=== PATIENT | female | born 1940 | race Caucasian/White ===

== ENCOUNTER 2017-01-02 14:15 | Emergency (ER) | payer MEDICARE, BC ==
[2017-01-02] MEDS ORDERED: Sodium Chloride 0.9% 10 ML Syringe FLUSH PRN (16:01)
[2017-01-02] MEDS ORDERED: Acetaminophen 325 MG Tab PO ONE (16:02)
--- NOTE | 2017-01-02 16:11 | EDM.PDOC ---
ED HPI GENERAL MEDICAL PROBLEM - General Chief Complaint: Cardiovascular Problem Stated Complaint: DIZZY/NUMBNESS SPELLS Time Seen by Provider: 01/02/17 15:45 Source of Information: Reports: Patient History Limitations: Reports: No Limitations - History of Present Illness INITIAL COMMENTS - FREE TEXT/NARRATIVE: Katja is a 76 year old female who presents to the ED today with c/o of episodes at home where she was "feeling warm" and nearly passed out. Patient reports this happened a total of 3 times. She does endorse some chest pressure which has since resolved. Patient does wonder if anxiety is playing a role in her symptoms, states she used to be on Ativan but her PCP took her off of that and started her on Buspar. Patient denies any current chest pain, shortness of breath or current dizziness/or room spinning sensation. Onset: Today - Related Data Allergies Allergy/AdvReac Type Severity Reaction Status Date / Time Sulfa (Sulfonamide Allergy Mild Rash Verified 01/02/17 15:16 Antibiotics) tape Allergy Blisters Uncoded 03/24/15 16:54 Home Meds: Home Meds Hydrochlorothiazide 25 mg PO DAILY 07/16/13 [History] Losartan [Cozaar] 100 mg PO DAILY 07/16/13 [History] Oxybutynin [Oxybutynin ER] 5 mg PO DAILY 07/16/13 [History] Aspirin/Calcium Carbonate/Mag [Aspirin Buffered 325 mg Tab] 1 tab PO DAILY 01/02 [History] Calcium Carbonate [Calcium] 1 tab PO DAILY 01/02/17 [History] Doxazosin [Cardura] 1 tab PO DAILY 01/02/17 [History] Fish Oil/[place]-3 Fatty Acids [Fish Oil 1,000 MG] 1,500 mg PO DAILY 01/02/17 [ History] LORazepam 1 tab PO BEDTIME 01/02/17 [History] Loratadine [Claritin] 1 tab PO DAILY 01/02/17 [History] Omeprazole 1 tab PO DAILY 01/02/17 [History] Sertraline [Zoloft] 1 tab PO DAILY 01/02/17 [History] busPIRone [Buspar] 1 tab PO BID 01/02/17 [History] Past Medical History Cardiovascular History: Reports: Hypertension Respiratory History: Reports: Bronchitis, Recurrent Gastrointestinal History: Reports: GERD 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 Denies: No Symptoms Endocrine: Reports: No Symptoms GI/Abdominal: Reports: No Symptoms Musculoskeletal: Reports: No Symptoms Skin: Reports: No Symptoms Neurological: Reports: Dizziness (Resolved), Other (Near syncope) Psychiatric: Reports: Anxiety Hematologic/Lymphatic: Reports: No Symptoms Immunologic: Reports: No Symptoms ED EXAM, GENERAL - Physical Exam Exam: See Below Exam Limited By: No Limitations General Appearance: Alert, WD/WN, Anxious (Mildly) Eye Exam: Bilateral Eye: EOMI, PERRL Ears: Normal External Exam, Normal TMs Throat/Mouth: Normal Oropharynx Respiratory/Chest: No Respiratory Distress, Lungs Clear, Normal Breath Sounds Cardiovascular: No Murmur, Other (Mild lower extremity edema, irregularily irregular rhythm. ) GI/Abdominal: Normal Bowel Sounds, Soft, Non-Tender Extremities: Normal Inspection, Normal Range of Motion Neurological: Alert, Oriented, CN II-XII Intact Psychiatric: Anxious (Mildly) Skin Exam: Warm, Dry, Intact Lymphatic: No Adenopathy EKG INTERPRETATION EKG Date: 01/02/17 Time: 16:00 Rhythm: a-fib [place]: normal P-wave: absent QRS: normal ST-T: normal Comparison: change from previous EKG (New afib compared to 03/14/2015) EKG Interpretation Comments: Repeat EKG done at 1820 which confirms atrial fibrillation. No ischemic acute findings Course - Vital Signs Text/Narrative:: Katja is a delightful 76 year old female who presents to the ED today with near syncope at home as well as feeling "warm and flushed". Please refer to HPI and focused exam. Initial EKG shows atrial fibrillation which is new for patient, unknown when this started making patient not a candidate for cardioversion, EKG back in March of 2015 shows a NSR. There is no acute ischemic changes on EKG, confirmed with Dr. Phillip. Concern if patient's symptoms today are secondary to anxiety or cardiac in origin vs. cerebellar involvement although less likely. CXR is unremarkable. CT scan of head is negative for any acute intracranial findings. Blood work today returns with very mildly elevated BNP, initial troponin is undetectable and remaining blood work (CBC and CMP) is within normal limits. Patient's was given 0.5 mg oral ativan here per request and reports she is feeling better. Repeat EKG was obtained and continues to show atrial fibrillation with controlled rate. Patient's Chads 2 vasc is a 4, encouraging anti-coagulation. I discussed patient with her primary care doctor, Dr. Caputo who would like patient started on Coumadin or Pradaxa, after discussing options and plan of care with patient and her , reports that their insurance does not cover Pradaxa as he is on Coumadin as well. Patient was given a 5 mg tablet here in the ED, RX was given for 5 mg daily at this time. Patient is to see Dr. Caputo in clinic tomorrow at 11:45 for ED follow up and to discuss the Coumadin and INR testing. INR today is 0.96. I did instruct patient to take her 325 mg of Aspirin tomorrow as the Coumadin will not be effective right away. Reasons to return to the ED were discussed in detail. Patient was agreeable to plan of care and discharged with her and in stable condition. Last Recorded V/S: Last Vital Signs Temp 37 C 01/02/17 15:14 Pulse 76 01/02/17 18:09 Resp 12 01/02/17 18:09 BP 144/91 H 01/02/17 18:09 Pulse Ox 90 L 01/02/17 18:09 - Orders/Labs/Meds Orders: Active Orders 24 hr Category Date Time Status EKG Documentation Completion [RC] ASDIRECTED Care 01/02/17 15:26 Active EKG Documentation Completion [RC] ASDIRECTED Care 01/02/17 17:52 Active Peripheral IV Care [RC] . DIRECTED Care 01/02/17 16:01 Active Chest 2V [CR] Stat Exams 01/02/17 16:03 Taken Head wo Cont [CT] Stat Exams 01/02/17 16:03 Taken Sodium Chloride 0.9% [Saline Flush] Med 01/02/17 16:01 Active 10 ml FLUSH ASDIRECTED PRN Peripheral IV Insertion Adult [OM.PC] Routine Oth 01/02/17 16:01 Ordered EKG 12 Lead [EK] Stat Ther 01/02/17 15:26 Ordered EKG 12 Lead [EK] Stat Ther 01/02/17 17:52 Ordered Medication Orders Sodium Chloride (Saline Flush) 10 ml FLUSH ASDIRECTED PRN PRN Reason: Keep Vein Open Labs: Laboratory Tests 01/02/17 01/02/17 01/02/17 Range/Units 16:13 16:13 18:50 WBC 7.1 (4.5-11.0) K/uL RBC 4.59 (3.30-5.50) M/uL Hgb 14.6 (12.0-15.0) g/dL Hct 44.2 (36.0-48.0) % MCV 96 (80-98) fL MCH 32 H (27-31) pg MCHC 33 (32-36) % Plt Count 253 (150-400) K/uL Neut % (Auto) 62 (36-66) % Lymph % (Auto) 24 (24-44) % [place] % (Auto) 12 H (2-6) % Eos % (Auto) 1 L (2-4) % Baso % (Auto) 1 (0-1) % PT 10.2 (9.5-12.0) sec INR 0.96 (0.80-1.20) Sodium 140 (140-148) mmol/L Potassium 4.0 (3.6-5.2) mmol/L Chloride 104 (100-108) mmol/L Carbon Dioxide 29 (21-32) mmol/L Anion Gap 6.8 (5.0-14.0) mmol/L BUN 22 H (7-18) mg/dL Creatinine 0.8 (0.6-1.0) mg/dL Est Cr Clr Drug Dosing 51.03 mL/min Estimated GFR (MDRD) > 60 (>60) Glucose 108 H (74-106) mg/dL Calcium 8.5 (8.5-10.1) mg/dL Total Bilirubin 0.3 (0.2-1.0) mg/dL AST 13 L (15-37) U/L ALT 23 (12-78) U/L Alkaline Phosphatase 63 (46-116) U/L Troponin I < 0.017 (0.000-0.056) ng/mL Twm-Q-Hvyhmgrszmi Pept 425 H (5-125) pg/mL Total Protein 7.0 (6.4-8.2) g/dL Albumin 3.5 (3.4-5.0) g/dL Globulin 3.5 (2.3-3.5) g/dL Albumin/Globulin Ratio 1.0 L (1.2-2.2) Meds: Medications Generic Name Dose Route Start Last Admin Trade Name Freq PRN Reason Stop Dose Admin Sodium Chloride 10 ml 01/02/17 16:01 Saline Flush FLUSH ASDIRECTED PRN Keep Vein Open Discontinued Medications Generic Name Dose Route Start Last Admin Trade Name Freq PRN Reason Stop Dose Admin Acetaminophen 975 mg 01/02/17 16:02 01/02/17 16:15 Tylenol PO 01/02/17 16:03 975 mg NOW ONE Administration Lorazepam 0.5 mg 01/02/17 17:52 01/02/17 18:00 Ativan PO 01/02/17 17:53 0.5 mg ONETIME ONE Administration Warfarin Sodium 5 mg 01/02/17 18:50 Coumadin PO 01/02/17 18:51 ONETIME ONE Departure - Departure Time of Disposition: 19:15 Disposition: Home, Self-Care 01 Condition: good Clinical Impression: Atrial fibrillation Qualifiers: Atrial fibrillation type: unspecified Qualified Code(s): I48.91 - Unspecified atrial fibrillation Instructions: Atrial Fibrillation, [id number], Warfarin: What You Need to Know Referrals: Prosper Caputo Sr, MD [Primary Care Provider] - Forms: ED Department Discharge Additional Instructions: Katja, you have received your first dose of Coumadin (Warfarin) in the ED tonight. Take your next dose tomorrow night. Please see Dr. Caputo in clinic tomorrow at 11:45 as discussed. I have given you a total of 10 tablets of Coumadin, you can take one tablet a day unless directed otherwise by Dr. Caputo, the total dosage will depend on your INR which is the blood test that determines the therapeutic level of the Coumadin. It was so nice to meet you. Take care and good luck with everything. - My Orders Last 24 Hours: My Active Orders 01/02/17 15:26 EKG Documentation Completion [RC] ASDIRECTED EKG 12 Lead [EK] Stat 01/02/17 16:01 Peripheral IV Care [RC] . DIRECTED Sodium Chloride 0.9% [Saline Flush] 10 ml FLUSH ASDIRECTED PRN Peripheral IV Insertion Adult [OM.PC] Routine 01/02/17 16:03 Chest 2V [CR] Stat Head wo Cont [CT] Stat 01/02/17 17:52 EKG Documentation Completion [RC] ASDIRECTED EKG 12 Lead [EK] Stat - Assessment/Plan Last 24 Hours: My Active Orders 01/02/17 15:26 EKG Documentation Completion [RC] ASDIRECTED EKG 12 Lead [EK] Stat 01/02/17 16:01 Peripheral IV Care [RC] . DIRECTED Sodium Chloride 0.9% [Saline Flush] 10 ml FLUSH ASDIRECTED PRN Peripheral IV Insertion Adult [OM.PC] Routine 01/02/17 16:03 Chest 2V [CR] Stat Head wo Cont [CT] Stat 01/02/17 17:52 EKG Documentation Completion [RC] ASDIRECTED EKG 12 Lead [EK] Stat
[2017-01-02] MEDS ORDERED: LORazepam 0.5 MG Tab PO ONE (17:52)
[2017-01-02 18:29] VITALS: BP 144/91
[2017-01-02] MEDS ORDERED: Warfarin 5 MG Tab PO ONE (18:50)
--- NOTE | 2017-01-03 10:19 | CR ---
Mild cardiomegaly. Pulmonary vasculature within normal limits. No focal consolidation.
== END 2017-01-02 17:50 | disposition home or self-care (01) ==
LOC: JP.ED 14:15
DX: I48.91 Unspecified atrial fibrillation (principal); K21.9 Gastro-esophageal reflux disease without esophagitis; F41.9 Anxiety disorder, unspecified; Z85.41 Personal history of malignant neoplasm of cervix uteri; Z90.710 Acquired absence of both cervix and uterus; Z96.659 Presence of unspecified artificial knee joint; Z96.649 Presence of unspecified artificial hip joint; Z79.82 Long term (current) use of aspirin; Z79.899 Other long term (current) drug therapy; Z88.2 Allergy status to sulfonamides; Z91.048 Other nonmedicinal substance allergy status
CPT/HCPCS: 36415; 70450; 71020; 80053; 83880; 84484; 85025; 85610; 93005; 99285; A9270; 93010; 99284

== ENCOUNTER 2017-02-24 19:26 | Emergency (ER) | payer MEDICARE, BC ==
--- NOTE | 2017-02-24 19:54 | EDM.PDOC ---
[id number] by Provider: 02/24/17 19:48 Source of Information: Reports: Patient, Family History Limitations: Reports: No Limitations - History of Present Illness INITIAL COMMENTS - FREE TEXT/NARRATIVE: 77-year-old female recently discharged from an extended rehabilitation hospitalization after a two-vessel bypass graft and ischemic stroke presents with 2 days of increasing sensation of dyspnea. The symptoms are very similar to her anxiety symptoms but her wants to be reassured. She has no new pain, however the symptoms do see somewhat worse when she is lying down. Denies a cough. On arrival her respiratory rate is normal and O2 saturations are normal on room air. Onset: Unknown/Unsure Severity: Mild Worsens with: Reports: Other (Somewhat worse when lying down or active) Associated Symptoms: Reports: Confusion (She has persistent confusion and expressive aphasia since her stroke), Shortness of Breath. Denies: Diaphoresis , Fever/Chills, Nausea/Vomiting - Related Data Allergies Allergy/AdvReac Type Severity Reaction Status Date / Time Sulfa (Sulfonamide Allergy Mild Rash Verified 02/24/17 20:11 Antibiotics) tape Allergy Blisters Uncoded 02/24/17 20:11 Home Meds: Home Meds Hydrochlorothiazide 25 mg PO DAILY 07/16/13 [History] Losartan [Cozaar] 100 mg PO DAILY 07/16/13 [History] Oxybutynin [Oxybutynin ER] 5 mg PO DAILY 07/16/13 [History] Aspirin/Calcium Carbonate/Mag [Aspirin Buffered 325 mg Tab] 1 tab PO DAILY 01/02 [History] Calcium Carbonate [Calcium] 1 tab PO DAILY 01/02/17 [History] Doxazosin [Cardura] 1 tab PO DAILY 01/02/17 [History] Fish Oil/[place]-3 Fatty Acids [Fish Oil 1,000 MG] 1,500 mg PO DAILY 01/02/17 [ History] LORazepam 1 tab PO BEDTIME 01/02/17 [History] Loratadine [Claritin] 1 tab PO DAILY 01/02/17 [History] Omeprazole 1 tab PO DAILY 01/02/17 [History] Sertraline [Zoloft] 1 tab PO DAILY 01/02/17 [History] busPIRone [Buspar] 1 tab PO BID 01/02/17 [History] Cholecalciferol (Vitamin D3) [Vitamin D3] 1,000 - 3,000 mg PO DAILY 01/03/17 [ History] Estrogens, Conjugated [Premarin Vaginal Crm] 1 applic TOP DAILY PRN 01/03/17 [ History] Multivitamin with Minerals [One Daily Plus Minerals] 1 tab PO DAILY 01/03/17 [ History] Verapamil HCl [[place] Sr] 240 mg PO BID 01/03/17 [History] Past Medical History Cardiovascular History: Reports: Hypertension Respiratory History: Reports: Bronchitis, Recurrent Gastrointestinal History: Reports: GERD 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 Denies: Cough Cardiovascular: Denies: Chest Pain GI/Abdominal: Denies: Abdominal Pain, Nausea, Vomiting : Reports: No Symptoms Skin: Reports: No Symptoms Neurological: Reports: Trouble Speaking (Expressive aphasia is unchanged). Denies: Dizziness, Headache Psychiatric: Reports: No Symptoms ED EXAM, GENERAL - Physical Exam Exam: See Below Exam Limited By: No Limitations General Appearance: Alert, No Apparent Distress Eye Exam: Bilateral Eye: EOMI Head: Atraumatic Respiratory/Chest: No Respiratory Distress, Lungs Clear Cardiovascular: Regular Rate, Rhythm Extremities: Pedal Edema (Just a trace of pretibial edema bilaterally, symmetric ) Neurological: Alert, Oriented Psychiatric: Anxious Skin Exam: Warm, Dry EKG INTERPRETATION EKG Interpretation Comments: EKG shows atrial fibrillation with good rate control, no ST elevation or depression and occasional PVCs Course - Vital Signs Last Recorded V/S: Last Vital Signs Temp 98.2 F 02/24/17 21:15 Pulse 58 L 02/24/17 21:15 Resp 16 02/24/17 21:15 BP 143/75 H 02/24/17 21:15 Pulse Ox 93 L 02/24/17 21:15 - Orders/Labs/Meds Orders: Active Orders 24 hr Category Date Time Status EKG Documentation Completion [RC] ASDIRECTED Care 02/24/17 22:16 Active Chest 2V [CR] Routine Exams 02/24/17 20:15 Taken EKG 12 Lead [EK] Routine Ther 02/24/17 22:15 Ordered Labs: Laboratory Tests 02/24/17 02/24/17 Range/Units 20:16 20:16 WBC 9.4 (4.5-11.0) K/uL RBC 3.89 (3.30-5.50) M/uL Hgb 11.0 L D (12.0-15.0) g/dL Hct 35.5 L (36.0-48.0) % MCV 91 (80-98) fL MCH 28 (27-31) pg MCHC 31 L (32-36) % Plt Count 376 (150-400) K/uL Neut % (Auto) 66 (36-66) % Lymph % (Auto) 22 L (24-44) % [place] % (Auto) 10 H (2-6) % Eos % (Auto) 1 L (2-4) % Baso % (Auto) 1 (0-1) % Sodium 144 (140-148) mmol/L Potassium 3.4 L (3.6-5.2) mmol/L Chloride 107 (100-108) mmol/L Carbon Dioxide 29 (21-32) mmol/L Anion Gap 11.4 (5.0-14.0) mmol/L BUN 23 H (7-18) mg/dL Creatinine 0.9 (0.6-1.0) mg/dL Est Cr Clr Drug Dosing 42.72 mL/min Estimated GFR (MDRD) > 60 (>60) Glucose 137 H (74-106) mg/dL Calcium 8.8 (8.5-10.1) mg/dL - Re-Assessments/Exams Free Text/Narrative Re-Assessment/Exam: 02/24/17 19:57 A two-view chest x-ray will be obtained as well as a BMP and CBC. 02/24/17 20:55 Hemoglobin is only 11 which is fairly significantly lower than 3 months ago when it was 14 but that was prior to her surgery. Her electrolytes are reassuring, white count is normal. Chest x-ray shows a possible slight vascular congestion but no effusions, infiltrate or pneumothorax. She is feeling better with reassurance. She can take 1 extra hydrochlorothiazide in the afternoon for the next 2-3 days and follow-up with her primary provider if not improving satisfactorily or return anytime if worsening. Avoid extra salt intake. 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 Avoid any extra salt intake. Return anytime if worsening or concerns, or consider rechecking in 2-3 days if not improving satisfactorily. - My Orders Last 24 Hours: My Active Orders 02/24/17 20:15 Chest 2V [CR] Routine 02/24/17 22:15 EKG 12 Lead [EK] Routine 02/24/17 22:16 EKG Documentation Completion [RC] ASDIRECTED - Assessment/Plan Last 24 Hours: My Active Orders 02/24/17 20:15 Chest 2V [CR] Routine 02/24/17 22:15 EKG 12 Lead [EK] Routine 02/24/17 22:16 EKG Documentation Completion [RC] ASDIRECTED
[2017-02-24 21:17] VITALS: BP 143/75
--- NOTE | 2017-02-27 09:52 | CR ---
Portable chest Comparison: 02 Jan 2017. There has been a interval sternotomy. The heart and vascular structures are stable. There are no inf iltrates or effusions. Impression: 1. No acute findings.
== END 2017-02-24 21:20 | disposition home or self-care (01) ==
LOC: JP.ED 19:26
DX: I11.0 Hypertensive heart disease with heart failure (principal); I50.40 Unspecified combined systolic (congestive) and diastolic (congestive) heart failure; F41.9 Anxiety disorder, unspecified; K21.9 Gastro-esophageal reflux disease without esophagitis; Z90.710 Acquired absence of both cervix and uterus; Z96.649 Presence of unspecified artificial hip joint; Z96.659 Presence of unspecified artificial knee joint; Z79.899 Other long term (current) drug therapy; Z88.2 Allergy status to sulfonamides; Z91.09 Other allergy status, other than to drugs and biological substances
CPT/HCPCS: 36415; 71020; 71020-26; 80048; 85025; 93005; 93010; 99284; 99285-25

== ENCOUNTER 2017-06-14 16:56 | Emergency (ER) | payer MEDICARE, BC ==
--- NOTE | 2017-06-14 17:25 | EDM.PDOC ---
ED HPI GENERAL MEDICAL PROBLEM - General Chief Complaint: Respiratory Problem Stated Complaint: SOB Time Seen by Provider: 06/14/17 17:15 Source of Information: Reports: Patient, Family, RN Notes Reviewed History Limitations: Reports: No Limitations - History of Present Illness INITIAL COMMENTS - FREE TEXT/NARRATIVE: 77-year-old female presents to the emergency department today complaint of shortness of breath, she states been short of breath over the last couple days is worse with exertion does not really have chest pain no nausea vomiting no diaphoresis does have a known history of coronary artery disease recent bypass grafting this summer - Related Data Allergies Allergy/AdvReac Type Severity Reaction Status Date / Time Sulfa (Sulfonamide Allergy Mild Rash Verified 06/14/17 17:25 Antibiotics) tape Allergy Blisters Uncoded 06/14/17 17:25 Home Meds: Home Meds Hydrochlorothiazide 25 mg PO DAILY 07/16/13 [History] Oxybutynin [Oxybutynin ER] 5 mg PO BID 07/16/13 [History] Calcium Carbonate [Calcium] 250 mg PO BID 01/02/17 [History] Omeprazole 1 tab PO BID 01/02/17 [History] Sertraline [Zoloft] 100 mg PO BEDTIME 01/02/17 [History] busPIRone [Buspar] 1 tab PO TID 01/02/17 [History] Apixaban [Eliquis] 5 mg PO BID 06/14/17 [History] Aspirin [Halfprin] 81 mg PO DAILY 06/14/17 [History] Metoprolol Succinate [Toprol XL 100mg] 100 mg PO BID 06/14/17 [History] Verapamil HCl [Verapamil Sr] 180 mg PO BID 06/14/17 [History] atorvaSTATin [Lipitor] 40 mg PO DAILY 06/14/17 [History] Past Medical History HEENT History: Reports: Impaired Vision Cardiovascular History: Reports: CAD, Heart Failure, High Cholesterol, Hypertension, [place] Respiratory History: Reports: Bronchitis, Recurrent Gastrointestinal History: Reports: GERD 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: Musculoskeletal History: Reports: Arthritis Neurological History: Reports: CVA, Speech Problems Other Neuro History: 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 Psychiatric History: Reports: Anxiety Oncologic (Cancer) History: Reports: Cervix - Infectious Disease History Infectious Disease History: Reports: Chicken Pox, Measles, Mumps - Past Surgical History Cardiovascular Surgical History: Reports: Coronary Artery Bypass Other Cardiovascular Surgeries/Procedures: cabg January 2017 Female Surgical History: Reports: Hysterectomy Musculoskeletal Surgical History: Reports: Hip Replacement, Knee Replacement Social & Family History - Tobacco Use Smoking Status *Q: Never Smoker - Alcohol Use Days Per Week of Alcohol Use: 0 - Recreational Drug Use Recreational Drug Use: No ED ROS GENERAL - Review of Systems Review Of Systems: See Below Constitutional: Reports: No Symptoms HEENT: Reports: No Symptoms Respiratory: Reports: Shortness of Breath Cardiovascular: Reports: Dyspnea on Exertion GI/Abdominal: Reports: No Symptoms : Reports: No Symptoms Musculoskeletal: Reports: No Symptoms Skin: Reports: No Symptoms Neurological: Reports: No Symptoms ED EXAM, GENERAL - Physical Exam Exam: See Below Exam Limited By: No Limitations General Appearance: Alert, WD/WN, No Apparent Distress Eye Exam: Bilateral Eye: Normal Inspection Head: Atraumatic, Normocephalic Neck: Normal Inspection, Supple, Non-Tender, Full Range of Motion Respiratory/Chest: No Respiratory Distress, Lungs Clear, Normal Breath Sounds, No Accessory Muscle Use, Other (Chest is tender along the medial sternotomy scar ) Cardiovascular: Regular Rate, Rhythm, No Murmur GI/Abdominal: Soft, Non-Tender Extremities: Normal Inspection, Non-Tender, Pedal Edema Neurological: Alert, Oriented, CN II-XII Intact Psychiatric: Anxious Course - Vital Signs Last Recorded V/S: Last Vital Signs Temp 97.3 F 06/14/17 17:12 Pulse 67 06/14/17 17:59 Resp 16 06/14/17 17:59 BP 139/76 06/14/17 17:59 Pulse Ox 94 L 06/14/17 17:59 - Orders/Labs/Meds Orders: Active Orders 24 hr Category Date Time Status Cardiac Monitoring [RC] .As Directed Care 06/14/17 17:21 Active EKG Documentation Completion [RC] ASDIRECTED Care 06/14/17 17:21 Active Chest 1V Frontal [CR] Stat Exams 06/14/17 17:21 Taken EKG 12 Lead [EK] Stat Ther 06/14/17 17:21 Ordered Labs: Laboratory Tests 06/14/17 06/14/17 06/14/17 Range/Units 17:33 17:33 17:33 WBC 7.3 (4.5-11.0) K/uL RBC 4.85 (3.30-5.50) M/uL Hgb 11.8 L (12.0-15.0) g/dL Hct 38.8 (36.0-48.0) % MCV 80 (80-98) fL MCH 24 L (27-31) pg MCHC 30 L (32-36) % Plt Count 329 (150-400) K/uL Neut % (Auto) 60 (36-66) % Lymph % (Auto) 27 (24-44) % [place] % (Auto) 11 H (2-6) % Eos % (Auto) 1 L (2-4) % Baso % (Auto) 0 (0-1) % D-Dimer, Quantitative < 100 (0.0-400.0) ng/mL Sodium 140 (140-148) mmol/L Potassium 4.0 (3.6-5.2) mmol/L Chloride 103 (100-108) mmol/L Carbon Dioxide 27 (21-32) mmol/L Anion Gap 10.1 (5.0-14.0) mmol/L BUN 20 H (7-18) mg/dL Creatinine 0.9 (0.6-1.0) mg/dL Est Cr Clr Drug Dosing 46.64 mL/min Estimated GFR (MDRD) > 60 (>60) Glucose 110 H (74-106) mg/dL Calcium 9.0 (8.5-10.1) mg/dL Total Bilirubin 0.4 (0.2-1.0) mg/dL AST 32 D (15-37) U/L ALT 36 (12-78) U/L Alkaline Phosphatase 115 D (46-116) U/L Troponin I < 0.017 (0.000-0.056) ng/mL NT-Pro-B Natriuret Pep (5-450) pg/mL Total Protein 7.2 (6.4-8.2) g/dL Albumin 3.2 L (3.4-5.0) g/dL Globulin 4.0 H (2.3-3.5) g/dL Albumin/Globulin Ratio 0.8 L (1.2-2.2) 06/14/17 Range/Units 17:33 WBC (4.5-11.0) K/uL RBC (3.30-5.50) M/uL Hgb (12.0-15.0) g/dL Hct (36.0-48.0) % MCV (80-98) fL MCH (27-31) pg MCHC (32-36) % Plt Count (150-400) K/uL Neut % (Auto) (36-66) % Lymph % (Auto) (24-44) % [place] % (Auto) (2-6) % Eos % (Auto) (2-4) % Baso % (Auto) (0-1) % D-Dimer, Quantitative (0.0-400.0) ng/mL Sodium (140-148) mmol/L Potassium (3.6-5.2) mmol/L Chloride (100-108) mmol/L Carbon Dioxide (21-32) mmol/L Anion Gap (5.0-14.0) mmol/L BUN (7-18) mg/dL Creatinine (0.6-1.0) mg/dL Est Cr Clr Drug Dosing mL/min Estimated GFR (MDRD) (>60) Glucose (74-106) mg/dL Calcium (8.5-10.1) mg/dL Total Bilirubin (0.2-1.0) mg/dL AST (15-37) U/L ALT (12-78) U/L Alkaline Phosphatase (46-116) U/L Troponin I (0.000-0.056) ng/mL NT-Pro-B Natriuret Pep 1703 H (5-450) pg/mL Total Protein (6.4-8.2) g/dL Albumin (3.4-5.0) g/dL Globulin (2.3-3.5) g/dL Albumin/Globulin Ratio (1.2-2.2) Meds: Medications Discontinued Medications Generic Name Dose Route Start Last Admin Trade Name Freq PRN Reason Stop Dose Admin Furosemide 40 mg 06/14/17 18:38 Lasix PO 06/14/17 18:39 ONETIME ONE Lorazepam 1 mg 06/14/17 17:27 06/14/17 17:31 Ativan PO 06/14/17 17:28 1 mg ONETIME ONE Administration Departure - Departure Time of Disposition: 18:43 Disposition: Home, Self-Care 01 Condition: Good Clinical Impression: Congestive heart failure Qualifiers: Congestive heart failure type: combined Congestive heart failure chronicity: unspecified congestive heart failure chronicity Qualified Code(s): I50.40 - Unspecified combined systolic (congestive) and diastolic (congestive) heart failure - Discharge Information Referrals: Prosper Caputo Sr, MD [Primary Care Provider] - Forms: ED Department Discharge Additional Instructions: Stop your hydrochlorothiazide, start the furosemide one tablet once a day recommend starting in the morning, please call Dr. Caputo for an appointment on Monday at which time he will recheck your electrolytes, call return to the emergency department worsening of symptoms - My Orders Last 24 Hours: My Active Orders 06/14/17 17:21 Cardiac Monitoring [RC] .As Directed EKG Documentation Completion [RC] ASDIRECTED Chest 1V Frontal [CR] Stat EKG 12 Lead [EK] Stat - Assessment/Plan Last 24 Hours: My Active Orders 06/14/17 17:21 Cardiac Monitoring [RC] .As Directed EKG Documentation Completion [RC] ASDIRECTED Chest 1V Frontal [CR] Stat EKG 12 Lead [EK] Stat Plan: Assessment Acuity = acute Site and laterality = exacerbation of congestive heart failure, came the patient with known history of coronary artery disease and atrial fibrillation Etiology = fluid overload Manifestations = dyspnea Location of injury = Home Lab values = CBC unremarkable CMP unremarkable, troponin is negative BNP elevated 1703 EKG demonstrates atrial fibrillation no ST changes or depressions , chest x-ray shows cardiomegaly official reading radiologist pending Plan Called discussed case with her primary care provider plan is to stop her hydrochlorothiazide she'll be started on Lasix 40 mg once a day she is going to follow-up with her primary care provider on Monday for reevaluation and electrolyte check if secretions get worse she will return to the emergency department Patient was in agreement with the plan all questions were answered, they were instructed to return to the emergency department or call for worsening symptoms. This note was dictated using [employer] voice recognition software please call with any questions.
[2017-06-14] MEDS ORDERED: LORazepam 1 MG Tab PO ONE (17:27)
[2017-06-14 18:00] VITALS: BP 139/76
[2017-06-14] MEDS ORDERED: Furosemide 40 MG Tab PO ONE (18:38)
--- NOTE | 2017-06-15 10:05 | CR ---
Chest 1V Frontal INDICATION: Chest Pain FINDINGS: Comparison 02/24/2017. Sternotomy. Stable cardiac enlargement. Lungs are clear. Degenerative changes both shoulders. AP portable chest x-ray otherwise unremarkable.
== END 2017-06-14 18:52 | disposition home or self-care (01) ==
LOC: JP.ED 16:56
DX: I11.0 Hypertensive heart disease with heart failure (principal); I50.40 Unspecified combined systolic (congestive) and diastolic (congestive) heart failure; I25.10 Atherosclerotic heart disease of native coronary artery without angina pectoris; E78.00 Pure hypercholesterolemia, unspecified; K21.9 Gastro-esophageal reflux disease without esophagitis; F41.9 Anxiety disorder, unspecified; Z95.1 Presence of aortocoronary bypass graft; Z79.82 Long term (current) use of aspirin; Z79.899 Other long term (current) drug therapy; Z88.2 Allergy status to sulfonamides; Z91.048 Other nonmedicinal substance allergy status
CPT/HCPCS: 36415; 71010; 80053; 83880; 84484; 85025; 85379; 93005; 99285; A9270; 93010; 99284

== ENCOUNTER 2017-07-08 20:40 | Emergency (ER) | payer MEDICARE, BC ==
[2017-07-08 22:06] VITALS: BP 177/78
[2017-07-08] MEDS ORDERED: Metoprolol Succinate 50 MG Tab.ER PO ONE ×2 (22:08→22:11)
[2017-07-08] MEDS ORDERED: Verapamil 180 MG Tab.ER PO ONE (22:09)
--- NOTE | 2017-07-08 22:32 | EDM.PDOC ---
ED HPI GENERAL MEDICAL PROBLEM - General Chief Complaint: General Stated Complaint: HEADACHE Time Seen by Provider: 07/08/17 21:30 Source of Information: Reports: Patient, Family History Limitations: Reports: No Limitations - History of Present Illness INITIAL COMMENTS - FREE TEXT/NARRATIVE: 77-year-old female presents with an intermittent frontal headache for the past several weeks. She has a history of an ischemic infarct and has expressive aphasia and some neurologic deficits physically secondary to the stroke. It's somewhat unusual for her to have headaches, and she's had an intermittent frontal headache and some nasal congestion for the past 2 weeks. She just doesn' t feel good, has been taking her blood pressure frequently and it's been mildly elevated compared to baseline and when she takes her blood pressure she can "feel it in her head" so she came in tonight very anxious and concerned about her health. According to her she is at her baseline other than her nervousness and blood pressure. No fevers or chills, no nausea or vomiting, no shortness of breath or cough. No other cold symptoms such as sore throat. Onset: Gradual Location: Reports: Head (Frontal) Severity: Mild Associated Symptoms: Reports: Other (Postnasal drainage) Headache Pain Score (Numeric/FACES): 8 - Related Data Allergies Allergy/AdvReac Type Severity Reaction Status Date / Time Sulfa (Sulfonamide Allergy Mild Rash Verified 07/08/17 20:58 Antibiotics) tape Allergy Blisters Uncoded 07/08/17 20:58 Home Meds: Home Meds Hydrochlorothiazide 25 mg PO DAILY 07/16/13 [History] Oxybutynin [Oxybutynin ER] 5 mg PO BID 07/16/13 [History] Omeprazole 1 tab PO BID 01/02/17 [History] Sertraline [Zoloft] 100 mg PO BEDTIME 01/02/17 [History] busPIRone [Buspar] 1 tab PO TID 01/02/17 [History] Apixaban [Eliquis] 5 mg PO BID 06/14/17 [History] Aspirin [Halfprin] 81 mg PO DAILY 06/14/17 [History] Metoprolol Succinate [Toprol XL 100mg] 100 mg PO BID 06/14/17 [History] Verapamil HCl [Verapamil Sr] 360 mg PO DAILY 06/14/17 [History] atorvaSTATin [Lipitor] 40 mg PO DAILY 06/14/17 [History] Calcium Citrate/Vitamin D3 [Calcium Citrate + D] 0.5 tab PO BID 07/08/17 [ History] Past Medical History HEENT History: Reports: Impaired Vision Cardiovascular History: Reports: CAD, Heart Failure, High Cholesterol, Hypertension, [place] Respiratory History: Reports: Bronchitis, Recurrent Gastrointestinal History: Reports: GERD [employer]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: Reports: Musculoskeletal History: Reports: Arthritis Neurological History: Reports: CVA, Speech Problems Other Neuro History: 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 Psychiatric History: Reports: Anxiety, Depression, Panic Attack Endocrine/Metabolic History: Reports: None Oncologic (Cancer) History: Reports: Cervix Dermatologic History: Reports: None - Infectious Disease History Infectious Disease History: Reports: Chicken Pox, Measles, Mumps - Past Surgical History Cardiovascular Surgical History: Reports: Coronary Artery Bypass Other Cardiovascular Surgeries/Procedures: cabg January 2017 GI Surgical History: Reports: Colonoscopy Female Surgical History: Reports: Hysterectomy Musculoskeletal Surgical History: Reports: Hip Replacement, Knee Replacement Social & Family History - Tobacco Use Smoking Status *Q: Never Smoker - Caffeine Use Caffeine Use: Reports: Coffee - Alcohol Use Days Per Week of Alcohol Use: 0 - Recreational Drug Use Recreational Drug Use: No ED ROS GENERAL - Review of Systems Review Of Systems: See Below Constitutional: Reports: Malaise. Denies: Fever, Chills HEENT: Reports: Rhinitis Respiratory: Denies: Shortness of Breath, Cough Cardiovascular: Denies: Chest Pain Endocrine: Reports: Fatigue GI/Abdominal: Denies: Abdominal Pain, Nausea, Vomiting : Reports: No Symptoms Skin: Reports: No Symptoms Neurological: Reports: Headache, Other (Chronic deficits from her left ischemic stroke are stable) Psychiatric: Reports: Anxiety ED EXAM, GENERAL - Physical Exam Exam: See Below Exam Limited By: No Limitations General Appearance: Alert, No Apparent Distress Eye Exam: Bilateral Eye: EOMI Respiratory/Chest: No Respiratory Distress, Lungs Clear Cardiovascular: Regular Rate, Rhythm Extremities: Pedal Edema (Bilateral trace pedal edema) Neurological: Alert, Oriented, Other (She has baseline aphasia, and right sided weakness from her ischemic stroke) Course - Vital Signs Last Recorded V/S: Last Vital Signs Temp 97.7 F 07/08/17 21:12 Pulse 84 07/08/17 22:17 Resp 20 07/08/17 21:12 BP 177/78 H 07/08/17 22:17 Pulse Ox 96 07/08/17 22:00 - Orders/Labs/Meds Orders: Active Orders 24 hr Category Date Time Status Head wo Cont [CT] Stat Exams 07/08/17 21:31 Ordered Meds: Medications Discontinued Medications Generic Name Dose Route Start Last Admin Trade Name Amanda PRN Reason Stop Dose Admin Metoprolol Succinate 50 mg 07/08/17 22:08 07/08/17 22:17 Toprol Xl PO 07/08/17 22:09 50 mg ONETIME ONE Administration Metoprolol Succinate 50 mg 07/08/17 22:11 07/08/17 22:17 Toprol Xl PO 07/08/17 22:12 50 mg ONETIME ONE Administration Verapamil HCl 180 mg 07/08/17 22:09 07/08/17 22:24 Calan Sr PO 07/08/17 22:10 180 mg ONETIME ONE Administration - Re-Assessments/Exams Free Text/Narrative Re-Assessment/Exam: 07/08/17 22:30 Patient has not yet had her evening blood pressure medication, and her initial systolic blood pressure was 180 which is much higher than her usual [address] the head was obtained and after the CT she was given her 100 mg of metoprolol and 180 mg of verapamil. She continued to appear to be very stable physically. The CT showed old changes from the stroke, nothing new. She was reassured and given 10 1 mg Ativan to take one half to one pill twice daily for anxiety. She has a follow-up exam with her neurologist this week and a copy of the CT report was given to the patient to discuss with her neurologist. Departure - Departure Time of Disposition: 22:45 Disposition: Home, Self-Care 01 Condition: Good Clinical Impression: Anxiety about health Headache Qualifiers: Headache type: tension-type Headache chronicity pattern: episodic headache Intractability: not intractable Qualified Code(s): G44.219 - Episodic tension- type headache, not intractable - Discharge Information Instructions: General Headache Without Cause, Panic Attacks, [id number] Referrals: Prosper Caputo Sr, MD [Primary Care Provider] - Forms: ED Department Discharge Care Plan Goals: Continue your regular medications but add one half to one pill of Ativan up to twice daily for restlessness or anxiety. It is especially helpful when trying to relax or sleep. Take your copy of the CT report to your recheck with neurology, and return anytime sooner to the emergency room if you feel you are worsening or have other concerns. - My Orders Last 24 Hours: My Active Orders 07/08/17 21:31 Head wo Cont [CT] Stat - Assessment/Plan Last 24 Hours: My Active Orders 07/08/17 21:31 Head wo Cont [CT] Stat
== END 2017-07-08 22:45 | disposition home or self-care (01) ==
LOC: JP.ED 20:40
DX: G44.219 Episodic tension-type headache, not intractable (principal); R41.9 Unspecified symptoms and signs involving cognitive functions and awareness; F41.1 Generalized anxiety disorder; Z91.048 Other nonmedicinal substance allergy status; Z88.2 Allergy status to sulfonamides; Z79.899 Other long term (current) drug therapy
CPT/HCPCS: 70450; 99284; A9270; 99283

== ENCOUNTER 2020-09-17 06:39 | Day surgery (SDC) | payer MEDICARE ==
[2020-09-17] MEDS ORDERED: Sodium Chloride 0.9% 10 ML Syringe FLUSH SCH (07:00)
[2020-09-17 08:05] VITALS: BP 110/84; PULSE 81
--- NOTE | 2020-09-17 10:06 | OR ---
DATE OF PROCEDURE: 09/17/2020 SURGEON: Emily Alonso MD POSTOPERATIVE CARE: Postoperative care will be provided mainly at the [address] [place] [address] [facility] in conjunction with [facility]. PREOPERATIVE DIAGNOSIS: Cataract, right eye. POSTOPERATIVE DIAGNOSIS: Cataract, right eye. PROCEDURE: Cataract extraction, phacoemulsification with intraocular lens placement, right eye. ANESTHESIA: Topical and intracameral. ESTIMATED BLOOD LOSS: Minimal. COMPLICATIONS: None. PATHOLOGY SPECIMENS: None. SURGICAL FINDINGS: None. INDICATION FOR PROCEDURE: The patient is a 80-year-old female with history of a visually significant cataract in the right eye, which interfered with activities of daily living. This consisted of a nuclear sclerosis cataract. Following careful discussion of the risks, benefits and alternatives to cataract extraction with intraocular lens placement including blindness and , the patient elected to proceed, and informed, written consent was obtained prior to the procedure. DESCRIPTION OF THE PROCEDURE: The patient was previously identified, and a ronnie placed above the right eye. All sources, including the patient, indicated that the right eye was the correct eye. The patient was subsequently taken to the operating room where standard monitors were applied. The patient was then prepped and draped in the usual sterile fashion for ophthalmic surgery. Attention was first directed at the 12 o'clock position where a paracentesis port was fashioned. Shugar solution followed by Viscoat was instilled into the eye. Attention was then directed to the 8:30 position where a triplanar incision was made in a near-clear manner using a keratome. A continuous capsulorrhexis was then made using a combination of the cystotome and Utrata forceps. Hydrodissection was achieved using a balanced salt solution, and the lens rotated nicely. Phacoemulsification was then done using a modified [id number] technique without complication. Phaco time was 5.30 CDE. The remaining cortex was removed using the irrigation/aspiration handpiece. Provisc was then instilled into the eye. A Technis lens, model DCB00, at 19.0 diopters was then placed in the capsular bag using an [place] injector. The remaining viscoelastic was removed using the irrigation/aspiration forceps. All wounds were then checked and found to be watertight. The lid speculum and drapes were removed. Maxitrol ointment was placed in the patient's right eye, and the eye was shielded. The patient tolerated the procedure well. The patient was instructed to follow up tomorrow. All needle and sponge counts were correct at the end of the procedure. There were no surgical findings. Emily Alonso MD /[id number]
== END 2020-09-17 08:20 | disposition home or self-care (01) ==
LOC: JP.SDS 06:39
PROVIDERS: ATTEND Ophthalmology
DX: H26.9 Unspecified cataract (principal); I10 Essential (primary) hypertension; I25.10 Atherosclerotic heart disease of native coronary artery without angina pectoris; I48.91 Unspecified atrial fibrillation; E66.9 Obesity, unspecified; Z95.1 Presence of aortocoronary bypass graft; Z86.73 Personal history of transient ischemic attack (TIA), and cerebral infarction without residual deficits; Z88.2 Allergy status to sulfonamides; Z68.35 Body mass index [BMI] 35.0-35.9, adult
CPT/HCPCS: V2632

== ENCOUNTER 2020-10-01 06:35 | Day surgery (SDC) | payer MEDICARE ==
[2020-10-01] MEDS ORDERED: Sodium Chloride 0.9% 10 ML Syringe FLUSH PRN (07:00)
[2020-10-01 08:37] VITALS: BP 122/70; PULSE 75
--- NOTE | 2020-10-01 12:03 | OR ---
DATE OF PROCEDURE: 10/01/2020 SURGEON: Emily Alonso MD POSTOPERATIVE CARE: Postoperative care will be provided mainly at the [address] [place] [address] [facility] in conjunction with [facility]. PREOPERATIVE DIAGNOSIS: Cataract, left eye. POSTOPERATIVE DIAGNOSIS: Cataract, left eye. PROCEDURE: Phacoemulsification with intraocular lens placement, left eye. ANESTHESIA: Topical and intracameral. ESTIMATED BLOOD LOSS: Minimal. COMPLICATIONS: None. PATHOLOGY SPECIMENS: None. SURGICAL FINDINGS: None. INDICATION FOR PROCEDURE: The patient is a 80-year-old female with history of a visually significant cataract in the left eye, which interfered with activities of daily living. This consisted of a nuclear sclerosis cataract. Following careful discussion of the risks, benefits and alternatives to cataract extraction with intraocular lens placement including blindness and , the patient elected to proceed, and informed, written consent was obtained prior to the procedure. DESCRIPTION OF THE PROCEDURE: The patient was previously identified, and a ronnie placed above the left eye. All sources, including the patient, indicated that the left eye was the correct eye. The patient was subsequently taken to the operating room where standard monitors were applied. The patient was then prepped and draped in the usual sterile fashion for ophthalmic surgery. Attention was first directed at the 12 o'clock position where a paracentesis port was fashioned. Shugar solution followed by Viscoat was instilled into the eye. Attention was then directed to the 8:30 position where a triplanar incision was made in a near-clear manner using a keratome. A continuous capsulorrhexis was then made using a combination of the cystotome and Utrata forceps. Hydrodissection was achieved using a balanced salt solution, and the lens rotated nicely. Phacoemulsification was then done using a modified [id number] technique without complication. Phaco time was 6.51 CDE. The remaining cortex was removed using the irrigation/aspiration handpiece. Provisc was then instilled into the eye. A Technis lens, model DCB00, at 19.5 Diopters was then placed in the capsular bag using an [place] injector. The remaining viscoelastic was removed using the irrigation/aspiration forceps. All wounds were then checked and found to be watertight. The lid speculum and drapes were removed. Maxitrol ointment was placed in the patient's left eye, and the eye was shielded. The patient tolerated the procedure well. The patient was instructed to follow up tomorrow. All needle and sponge counts were correct at the end of the procedure. There were no surgical findings. Emily Alonso MD /[id number]
== END 2020-10-01 08:15 | disposition home or self-care (01) ==
LOC: JP.SDS 06:35
PROVIDERS: ATTEND Ophthalmology
DX: H25.12 Age-related nuclear cataract, left eye (principal); I11.0 Hypertensive heart disease with heart failure; I50.9 Heart failure, unspecified; I48.91 Unspecified atrial fibrillation; I25.10 Atherosclerotic heart disease of native coronary artery without angina pectoris; E78.00 Pure hypercholesterolemia, unspecified; K21.9 Gastro-esophageal reflux disease without esophagitis; J40 Bronchitis, not specified as acute or chronic; E66.9 Obesity, unspecified; Z68.33 Body mass index [BMI] 33.0-33.9, adult; Z95.5 Presence of coronary angioplasty implant and graft; Z88.2 Allergy status to sulfonamides; Z98.890 Other specified postprocedural states
CPT/HCPCS: V2632

== ENCOUNTER 2021-05-26 17:53 | Emergency (ER) | payer MEDICARE ==
[2021-05-26] MEDS ORDERED: LORazepam 0.5 MG Tab PO ONE (18:31)
--- NOTE | 2021-05-26 18:37 | EDM.PDOC ---
ED HPI GENERAL MEDICAL PROBLEM - General Chief Complaint: Lower Extremity Injury/Pain Stated Complaint: VIA [facility] Time Seen by Provider: 05/26/21 18:24 Source of Information: Reports: Patient, RN Notes Reviewed History Limitations: Reports: No Limitations - History of Present Illness INITIAL COMMENTS - FREE TEXT/NARRATIVE: 81-year-old female presents emergency department day complaint of right leg pain, she states both her legs were purple this morning she is very concerned about it would like it evaluated. She is also very anxious having difficulty during the interview, denies any nausea vomiting shortness of breath or chest pain Right Lower Leg Pain Score (Numeric/FACES): 5 - Related Data Allergies Allergy/AdvReac Type Severity Reaction Status Date / Time Sulfa (Sulfonamide Allergy Mild Rash Verified 05/26/21 18:05 Antibiotics) tape Allergy Blisters Uncoded 05/26/21 18:05 Home Meds: Home Meds Oxybutynin [Oxybutynin ER] 5 mg PO BID 07/16/13 [History] hydroCHLOROthiazide [Hydrochlorothiazide] 25 mg PO DAILY 07/16/13 [History] Omeprazole 1 tab PO BID 01/02/17 [History] Sertraline [Zoloft] 50 mg PO BEDTIME 01/02/17 [History] busPIRone [Buspar] 1 tab PO BID 01/02/17 [History] Apixaban [Eliquis] 5 mg PO BID 06/14/17 [History] Aspirin [Halfprin] 81 mg PO DAILY 06/14/17 [History] Metoprolol Succinate [Toprol XL 100mg] 100 mg PO BID 06/14/17 [History] Verapamil HCl [Verapamil Sr] 360 mg PO DAILY 06/14/17 [History] atorvaSTATin [Lipitor] 40 mg PO DAILY 06/14/17 [History] Calcium Citrate/Vitamin D3 [Calcium Citrate + D] 0.5 tab PO BID 07/08/17 [History] Furosemide [Lasix] 20 mg PO DAILY 09/15/20 [History] LORazepam [Ativan] 0.5 mg PO BEDTIME 09/15/20 [History] diphenhydrAMINE [Benadryl] 25 mg PO Q6H PRN 09/15/20 [History] Acetaminophen [Tylenol] 650 mg PO Q6HR PRN 09/29/20 [History] Carboxymethylcellulose Sodium [Refresh Liquigel 1% Oph Soln] 2 drop EYEBOTH TID 09/29/20 [History] Cholecalciferol (Vitamin D3) [Vitamin D3] 1,000 unit PO DAILY 09/29/20 [History] Garlic 1,000 mg PO DAILY 09/29/20 [History] Loperamide HCl [Loperamide] 2 mg PO ASDIRECTED PRN 09/29/20 [History] Losartan [Cozaar] 50 mg PO DAILY 09/29/20 [History] Five Points-3/DHA/Epa/Fish Oil [Five Points-3 Fish Oil 1,000 MG Sfgl] 1,000 mg PO DAILY 09/29/20 [History] Triamcinolone Acetonide [Triamcinolone Acetonide 0.1% Crm] 1 applic TOP BID PRN 09/29/20 [History] Vitamin E 1,000 unit PO DAILY 09/29/20 [History] hydrOXYzine pamoate [Hydroxyzine Pamoate] 25 mg PO TID PRN 09/29/20 [History] metFORMIN [Glucophage XR] 500 mg PO BIDMEALS 05/26/21 [History] Past Medical History HEENT History: Reports: Cataract, Impaired Vision Cardiovascular History: Reports: CAD, Heart Failure, High Cholesterol, Hypertension, GA Respiratory History: Reports: Bronchitis, Recurrent Gastrointestinal History: Reports: [employer] History: Reports: Musculoskeletal History: Reports: Arthritis Neurological History: Reports: CVA, Speech Problems Other Neuro History: 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 Psychiatric History: Reports: Anxiety, Depression, Panic Attack Endocrine/Metabolic History: Reports: Obesity/BMI 30+ Hematologic History: Reports: None Immunologic History: Reports: None Oncologic (Cancer) History: Reports: Cervix Dermatologic History: Reports: None - Infectious Disease History Infectious Disease History: Reports: Chicken Pox, Measles, Mumps - Past Surgical History HEENT Surgical History: Reports: Tonsillectomy Cardiovascular Surgical History: Reports: Coronary Artery Bypass Other Cardiovascular Surgeries/Procedures: cabg January 2017 Respiratory Surgical History: Reports: None GI Surgical History: Reports: Colonoscopy Female Surgical History: Reports: Hysterectomy Endocrine Surgical History: Reports: None Neurological Surgical History: Reports: None Musculoskeletal Surgical History: Reports: Hip Replacement, Knee Replacement Oncologic Surgical History: Reports: None Dermatological Surgical History: Reports: None Social & Family History - Family History Family Medical History: No Pertinent Family History - Tobacco Use Tobacco Use Status *Q: Never Tobacco User - Caffeine Use Caffeine Use: Reports: Coffee - Recreational Drug Use Recreational Drug Use: No Review of Systems - Review of Systems Review Of Systems: See Below Constitutional: Reports: No Symptoms Respiratory: Reports: No Symptoms Cardiovascular: Reports: No Symptoms Musculoskeletal: Reports: Leg Pain ED EXAM, GENERAL - Physical Exam Exam: See Below Free Text/Narrative:: Examination lower extremities I do not appreciate any erythema there is no edema pedal pulse is difficult to palpate bilaterally feet are cold but similar no tenderness to palpation that I can elicit Exam Limited By: No Limitations General Appearance: Alert, Anxious Respiratory/Chest: No Respiratory Distress, Lungs Clear, Normal Breath Sounds, No Accessory Muscle Use, Chest Non-Tender Cardiovascular: Regular Rate, Rhythm, No Murmur Course - Vital Signs Last Recorded V/S: Last Vital Signs Temp 97.2 F 05/26/21 18:04 Pulse 70 05/26/21 20:58 Resp 16 05/26/21 20:58 BP 120/70 05/26/21 20:58 Pulse Ox 95 05/26/21 20:58 - Orders/Labs/Meds Orders: Active Orders 24 hr Category Date Time Status VL Duplex Lwr Ext Veins Ltd Rt [US] Stat Exams 05/26/21 20:01 Taken Labs: Laboratory Tests 05/26/21 05/26/21 05/26/21 Range/Units 18:32 18:32 18:40 WBC 5.2 (4.5-11.0) K/uL RBC 5.53 H (3.30-5.50) M/uL Hgb 12.9 (12.0-15.0) g/dL Hct 40.9 (36.0-48.0) % MCV 74 L (80-98) fL MCH 23 L (27-31) pg MCHC 32 (32-36) % Plt Count 363 (150-400) K/uL Neut % (Auto) 62.3 (36-66) % Lymph % (Auto) 15.1 L (24-44) % [place] % (Auto) 20.1 H (2-6) % Eos % (Auto) 1.5 L (2-4) % Baso % (Auto) 1.0 (0-1) % D-Dimer, Quantitative 628.03 H (0.0-500.0) ng/mL Sodium 139 L (140-148) mmol/L Potassium 3.0 L (3.6-5.2) mmol/L Chloride 97 L (100-108) mmol/L Carbon Dioxide 27 (21-32) mmol/L Anion Gap 18.0 H (5.0-14.0) mmol/L BUN 23 H (7-18) mg/dL Creatinine 1.2 H (0.6-1.0) mg/dL Est Cr Clr Drug Dosing 31.45 mL/min Estimated GFR (MDRD) 43 L (>60) Glucose 147 H (74-106) mg/dL Calcium 9.0 (8.5-10.1) mg/dL Meds: Medications Discontinued Medications Generic Name Dose Route Start Last Admin Trade Name Freq PRN Reason Stop Dose Admin Lorazepam 0.5 mg 05/26/21 18:31 05/26/21 18:38 Lorazepam 0.5 Mg Tab PO 05/26/21 18:32 0.5 mg ONETIME ONE Administration Departure - Departure Time of Disposition: 21:18 Disposition: Home, Self-Care 01 Condition: Fair Clinical Impression: Right leg pain - Discharge Information Referrals: PCP,None [Primary Care Provider] - Forms: ED Department Discharge Additional Instructions: Continue with your regular medications , please followup with your primary care provider in 3-5 days if not better, please call return to the emergency department with worsening of symptoms. Sepsis Event Note (ED) - Evaluation Sepsis Screening Result: No Definite Risk - Focused Exam Vital Signs: Vital Signs Temp Pulse Resp BP Pulse Ox 05/26/21 20:58 70 16 120/70 95 05/26/21 19:27 81 16 111/43 L 95 05/26/21 18:04 97.2 F 66 16 140/57 L 99 05/26/21 18:00 97.2 F 66 16 140/57 L 99 - My Orders Last 24 Hours: My Active Orders 05/26/21 20:01 VL Duplex Lwr Ext Veins Ltd Rt [US] Stat - Assessment/Plan Last 24 Hours: My Active Orders 05/26/21 20:01 VL Duplex Lwr Ext Veins Ltd Rt [US] Stat Plan: Assessment Acuity = acute Site and laterality = painful right Etiology = suspicious for peripheral vascular disease Manifestations = none Location of injury = Home Lab values = CBC unremarkable D-dimer slightly 628 of uncertain significance sodium low at 139 consistent hyponatremia potassium low 3.0 consistent hypokalemia creatinine elevated 1.2 consistent chronic renal failure stage G3 B ultrasound reveals no DVT Plan I did review lab work with her and recommend she follow-up with primary care for further evaluation of the peripheral vascular disease This note was dictated using [email or web address] voice recognition software please call with any questions on syntax or grammar.
[2021-05-26 21:04] VITALS: BP 120/70; PULSE 70
--- NOTE | 2021-05-27 09:09 | US ---
VL Duplex Lwr Ext Veins Ltd Rt INDICATION: pain elevated d-dimer FINDINGS: Ultrasound examination of the lower extremity using Doppler and compressive technique demonstrates that the common femoral, femoral, and popliteal veins are patent, and negative for thrombus. The calf veins were segmentally visualized and are negative where seen. IMPRESSION: Negative for deep venous thrombosis.
== END 2021-05-26 21:54 | disposition home or self-care (01) ==
LOC: JP.ED 17:53
DX: M79.604 Pain in right leg (principal); I25.10 Atherosclerotic heart disease of native coronary artery without angina pectoris; I11.0 Hypertensive heart disease with heart failure; I50.9 Heart failure, unspecified; E78.00 Pure hypercholesterolemia, unspecified; I25.2 Old myocardial infarction; K21.9 Gastro-esophageal reflux disease without esophagitis; E66.9 Obesity, unspecified; Z68.31 Body mass index [BMI] 31.0-31.9, adult; Z88.2 Allergy status to sulfonamides; Z91.048 Other nonmedicinal substance allergy status; Z79.899 Other long term (current) drug therapy; Z79.01 Long term (current) use of anticoagulants; Z95.1 Presence of aortocoronary bypass graft
CPT/HCPCS: 36415; 80048; 85025; 85379; 93971; 99284; A9270

== ENCOUNTER 2022-05-26 13:54 | Emergency (ER) | payer MEDICARE ==
[2022-05-26 16:25] LABS: ESTIMATED GFR 74 mL/min (>60)
[2022-05-26 17:03] VITALS: PULSE 84
[2022-05-26] MEDS ORDERED: LORazepam 0.5 MG Tab PO ONE (17:10)
[2022-05-26] MEDS ORDERED: Aspirin 81 MG Tab.Chew PO ONE (18:19)
[2022-05-26 18:31] VITALS: BP 139/80
== END 2022-05-26 19:17 | disposition home or self-care (01) ==
LOC: JP.ED 13:54
DX: R07.89 Other chest pain (principal); I11.0 Hypertensive heart disease with heart failure; I50.9 Heart failure, unspecified; E78.00 Pure hypercholesterolemia, unspecified; Z79.899 Other long term (current) drug therapy
CPT/HCPCS: 36415; 71045; 80053; 81001; 83735; 84484; 85025; 93005; 99285; A9270

== ENCOUNTER 2022-05-28 15:32 | Emergency (ER) | payer MEDICARE ==
[2022-05-28 16:05] VITALS: BP 140/58; PULSE 59
== END 2022-05-28 17:57 | disposition home or self-care (01) ==
LOC: JP.ED 15:32
DX: F41.9 Anxiety disorder, unspecified (principal); I25.10 Atherosclerotic heart disease of native coronary artery without angina pectoris; I11.0 Hypertensive heart disease with heart failure; I50.9 Heart failure, unspecified; Z88.2 Allergy status to sulfonamides; Z91.048 Other nonmedicinal substance allergy status; Z79.899 Other long term (current) drug therapy; Z79.01 Long term (current) use of anticoagulants
CPT/HCPCS: 99283

== ENCOUNTER 2022-05-29 10:12 | Emergency (ER) | payer MEDICARE ==
[2022-05-29 11:57] LABS: TROPONIN I HIGH SENSITIVITY 114.5 pg/mL (<=60.3)
[2022-05-29] MEDS: busPIRone 5 MG Tab PO ONE (12:45)
[2022-05-29] MEDS: Ibuprofen 400 MG Tab PO ONE (12:45)
[2022-05-29] MEDS: Potassium Chloride 20 MEQ Tab.ER PO ONE (12:45)
[2022-05-29] MEDS: Sodium Chloride 0.9% 10 ML Syringe FLUSH PRN (12:45)
[2022-05-29] MEDS: Magnesium Sulfate/Water 2 GM in Premix Bag 1 BAG IV ONE (12:46)
[2022-05-29] MEDS: Acetaminophen 500 MG Tab PO ONE (12:51)
[2022-05-29 12:52] VITALS: BP 136/67; PULSE 76
== END 2022-05-29 14:57 | disposition home or self-care (01) ==
LOC: JP.ED 10:12
DX: R62.7 Adult failure to thrive (principal); E87.6 Hypokalemia; E83.42 Hypomagnesemia; I11.0 Hypertensive heart disease with heart failure; I50.9 Heart failure, unspecified; R41.89 Other symptoms and signs involving cognitive functions and awareness; R53.1 Weakness; E66.9 Obesity, unspecified; Z68.31 Body mass index [BMI] 31.0-31.9, adult; Z20.822 Contact with and (suspected) exposure to COVID-19; Z88.2 Allergy status to sulfonamides; Z91.048 Other nonmedicinal substance allergy status; Z79.899 Other long term (current) drug therapy; Z79.01 Long term (current) use of anticoagulants; Z79.82 Long term (current) use of aspirin
CPT/HCPCS: 36415; 80048; 81001; 83735; 84484; 85025; 93005; 96365; 96366; 99285; A9270; J3475; J3490; U0002